=== PATIENT | female | born 1945 | race Caucasian/White ===

== ENCOUNTER 2017-05-12 09:38 | Day surgery (SDC) | payer MEDICARE, BC ==
[2017-05-07 12:41] VITALS: BMI 33.0
[2017-05-12] MEDS ORDERED: Propofol 200 MG/20 ML VIAL ONE (13:30)
--- NOTE | 2017-05-12 13:49 | OP ---
PREOPERATIVE DIAGNOSIS: History of colon polyps. PROCEDURE: After informed consent was obtained, the patient was placed in the left lateral decubitus position. Anesthesia administered per the Anesthesia Department. Forward-viewing endoscope was ins erted into the rectum after perianal inspection and rectal exam were normal and passed to the cecum a nd into the ileum with ease. The cecum, ileocecal valve, and appendiceal orifice were normal. The t erminal ileum was normal. The prep was excellent. The ascending, transverse, descending, sigmoid, a nd rectum were normal except for a few scattered sigmoid diverticula. Retroflexion in the rectum was normal. ASSESSMENT: 1. Sigmoid diverticulosis coli. 2. Otherwise, normal ileal colonoscopy. RECOMMENDATIONS: Repeat colonoscopy in 5 years.
== END 2017-05-12 13:30 | disposition home or self-care (01) ==
LOC: SDC 09:38
PROVIDERS: ATTEND Internal Medicine Gastroenterology
PROC: 0DJD8ZZ Inspection of Lower Intestinal Tract, Via Natural or Artificial Opening Endoscopic (ICD-10-PCS; principal; 2017-05-12)
DX: Z12.11 Encounter for screening for malignant neoplasm of colon (principal); K57.30 Diverticulosis of large intestine without perforation or abscess without bleeding; Z90.710 Acquired absence of both cervix and uterus; Z95.810 Presence of automatic (implantable) cardiac defibrillator; Z98.890 Other specified postprocedural states; Z86.010 Personal history of colon polyps
CPT/HCPCS: J2704

== ENCOUNTER 2018-02-27 12:24 | Outpatient (CLI) | payer MEDICARE, BC ==
[2018-02-27 14:06] LABS: #Eosinphils 0.2 thou/uL (0.0-0.7); #Lymphocytes 1.6 thou/uL (1.20-3.40); #Monocytes 0.6 thou/uL (0.11-0.59); #Neutrophils 3.8 thou/uL (1.40-6.50); %Basophils 0.6 % (0.0-1.0); %Eosinophils 3.4 % (0.0-10.0); %Lymphocytes 25.1 % (21.0-51.0); %Monocytes 9.8 % (0.0-10.0); %Neutrophils 61.1 % (42.0-75.0); Hemoglobin 12.9 g/dL (12.0-16.0); Mean Corpuscular HGB CONC 33.5 g/dL (32.0-36.0); Mean Corpuscular Hemoglobin 31.1 pg (27.0-31.0); Mean Corpuscular Volume 92.8 fL (78.0-98.0); Mean Platelet Volume 8.1 fL (7.4-10.4); Platelet Count 136 thou/uL (130-400); RBC Distribution Width 12.6 % (11.5-14.5); Red Blood Cell (RBC) Count 4.16 mill/uL (4.20-5.40); White Blood Cell (WBC) Count 6.3 thou/uL (4.8-10.8)
[2018-02-27 14:28] LABS: Anion Gap 14 mmol/L (10-20); BUN (Urea Nitrogen) 27 mg/dL (9.8-20.1); Calc. Creatinine Clearance 0 mL/min (70-130); Calcium 9.9 mg/dL (7.8-10.44); Carbon Dioxide 28 mmol/L (23-31); Chloride 102 mmol/L (98-107); Estimated GFR-MDRD 41; Glucose 100 mg/dL (83-110); Potassium 3.8 mmol/L (3.5-5.1); Sodium 140 mmol/L (136-145)
--- NOTE | 2018-02-27 14:56 | RAD ---
TWO VIEWS OF THE CHEST: COMPARISON: 09/06/09. HISTORY: Preoperative radiograph. FINDINGS: Two views of the chest show an enlarged but stable cardiomediastinal silhouette. The patient is stat us post sternotomy. The pacemaker is unchanged in position. There is no evidence of consolidation, mass, or pleural effusion. IMPRESSION: Cardiomegaly without evidence of acute cardiopulmonary disease. POS: [facility]
== END 2018-02-27 12:25 | disposition home or self-care (01) ==
LOC: LABBT 12:24
PROVIDERS: ATTEND Specialist
DX: Z01.818 Encounter for other preprocedural examination (principal); M79.9 Soft tissue disorder, unspecified; I51.7 Cardiomegaly
CPT/HCPCS: 71046; 80048; 85025; 93005; 93010

== ENCOUNTER 2018-03-03 06:56 | Day surgery (SDC) | payer MEDICARE, BC ==
[2018-02-27 12:54] VITALS: BMI 34.2
[2018-03-03] MEDS ORDERED: Ketorolac Tromethamine 30 MG/ML VIAL ONE (08:13)
[2018-03-03] MEDS ORDERED: CEFAZOLIN/Water 2 GM/20 ML SYRINGE ONE (08:14)
[2018-03-03] MEDS ORDERED: Bupivacaine/Epinephrine 0.25% 30 ML VIAL ONE (10:12)
[2018-03-03] MEDS ORDERED: Fentanyl 100 MCG/2 ML VIAL ONE ×2 (10:38→12:53)
[2018-03-03] MEDS ORDERED: Bacitracin Zinc Ointment 30 gm TUBE ONE (12:10)
[2018-03-03] MEDS ORDERED: Lidocaine 1% PF 5 ML VIAL ONE (13:50)
[2018-03-03] MEDS ORDERED: ePHEDrine/0.9% NaCl/PF SYRINGE 50 mg/10 ml ONE (13:50)
[2018-03-03] MEDS ORDERED: Ondansetron HCl/PF 4 MG/2 ML Vial ONE (13:50)
[2018-03-03] MEDS ORDERED: Dexamethasone 20 MG/5 ML VIAL ONE (13:50)
--- NOTE | 2018-03-04 09:26 | OP ---
DATE OF PROCEDURE: 03/03/2018 PREOPERATIVE DIAGNOSIS: A 15 cm upper back lipoma. POSTOPERATIVE DIAGNOSIS: A 15 cm upper back lipoma. OPERATION PERFORMED: Excision of 15 cm upper back lipoma with placement of subcutaneous drain. SURGEON: Jalen Horvath M.D. ANESTHESIA: General endotracheal. INDICATIONS: The patient is a 72-year-old female. I had previously removed a couple of different la rge lipomas in my office several years ago. The lipoma was removed previously were about 7 cm in max imum dimension. She returns at this time with a large obvious lipoma at the superior aspect of her b ack. This is significantly inferior to an incision from a prior lipoma on her posterior neck. She w as taken to the operating room at this time for excision of this lipoma. DESCRIPTION OF OPERATION: Informed consent was obtained. The patient was taken to the operating samantha m where general endotracheal anesthesia was obtained with the patient in supine position. A roll was placed under her chest to allow her neck to be able to bend forward. The area of the lipoma was pre pped with ChloraPrep and draped in sterile fashion. Local anesthetic was infiltrated circumferential ly using 0.25% Marcaine with epinephrine. A transverse incision was created over the lipoma. Carefu l dissection was carried out to dissect the lipoma free from the overlying skin. It was dissected im mediately off the underlying muscle. Great care was taken to ensure complete removal of the fatty ma ss. Meticulous hemostasis was obtained with electrocautery. The overlying skin was very redundant a fter the lipoma was removed. I therefore trimmed the edges of the skin both from the superior and in ferior flaps until it would allow appropriate closure. A #19 round fluted drain was placed within th e bed of the wound and brought out to the left lateral aspect, it was secured with a 3-0 nylon suture . The skin edges were approximated with 3-0 Vicryl to approximate the deep tissues and a running sut ure of 3-0 Prolene to approximate the skin edges. A dry gauze dressing was applied. There were no c omplications. The patient tolerated the procedure well and was taken to recovery room in stable cond ition.
== END 2018-03-03 14:52 | disposition home or self-care (01) ==
LOC: SDC 06:56
PROVIDERS: ATTEND Specialist
PROC: 0JB70ZZ Excision of Back Subcutaneous Tissue and Fascia, Open Approach (ICD-10-PCS; principal; 2018-03-03)
DX: D17.1 Benign lipomatous neoplasm of skin and subcutaneous tissue of trunk (principal); I25.10 Atherosclerotic heart disease of native coronary artery without angina pectoris; E78.00 Pure hypercholesterolemia, unspecified; I10 Essential (primary) hypertension; E11.42 Type 2 diabetes mellitus with diabetic polyneuropathy; F32.9 Major depressive disorder, single episode, unspecified; G43.909 Migraine, unspecified, not intractable, without status migrainosus; Z79.82 Long term (current) use of aspirin; Z79.84 Long term (current) use of oral hypoglycemic drugs; Z79.899 Other long term (current) drug therapy; Z88.8 Allergy status to other drugs, medicaments and biological substances; Z95.810 Presence of automatic (implantable) cardiac defibrillator
CPT/HCPCS: 88304; 96374; J0131; J1100; J1885; J2001; J2405; J3010

== ENCOUNTER 2018-03-20 10:57 | Outpatient (CLI) | payer MEDICARE, BC | END 2018-03-20 10:58 | disposition home or self-care (01) | LOC: BICMAMMO 10:57 | PROVIDERS: ATTEND Obstetrics & Gynecology | DX: Z12.31 Encounter for screening mammogram for malignant neoplasm of breast (principal) | CPT/HCPCS: 77063; 77067 ==

== ENCOUNTER 2019-03-24 11:19 | Outpatient (CLI) | payer MEDICARE, BC ==
--- NOTE | 2019-03-24 11:58 | MMO ---
Bilateral MAMMO Bilat Screen [facility]. CLINICAL HISTORY: Patient is 73 years old and is seen for screening. The patient has no family history of breast cancer. The patient has no personal history of cancer. VIEWS: The views performed were: bilateral craniocaudal with tomosynthesis; bilateral mediolateral oblique with tomosynthesis; and left mediolateral oblique. FILMS COMPARED: The present examination has been compared to prior imaging studies performed at [facility] on 11/30/2014, 12/04/2015, 01/08/2017 and 03/20/2018. This study has been interpreted with the assistance of computer-aided detection. MAMMOGRAM FINDINGS: There are scattered fibroglandular densities. There are stable benign appearing calcifications seen in both breasts. There are no suspicious masses, suspicious calcifications, or new areas of architectural distortion. IMPRESSION: THERE IS NO MAMMOGRAPHIC EVIDENCE OF MALIGNANCY. A ROUTINE FOLLOW-UP MAMMOGRAM IN 1 YEAR IS RECOMMENDED. THE RESULTS OF THIS EXAM WERE SENT TO THE PATIENT. ACR BI-RADS Category 2 - Benign finding MAMMOGRAPHY NOTE: 1. A negative mammogram report should not delay a biopsy if a dominant of clinically suspicious mass is present. 2. Approximately 10% to 15% of breast cancers are not detected by mammography. 3. Adenosis and dense breasts may obscure an underlying neoplasm. Reported by: DELFIN ATKINSON MD Electonically Signed: [id number]
== END 2019-03-24 11:20 | disposition home or self-care (01) ==
LOC: BICMAMMO 11:19
PROVIDERS: ATTEND Obstetrics & Gynecology
DX: Z12.31 Encounter for screening mammogram for malignant neoplasm of breast (principal)
CPT/HCPCS: 77063; 77067

== ENCOUNTER 2020-03-27 13:03 | Outpatient (CLI) | payer MEDICARE, BC ==
--- NOTE | 2020-03-27 13:57 | MMO ---
Bilateral MAMMO Bilat Screen [facility]. CLINICAL HISTORY: Patient is 74 years old and is seen for screening. The patient has no family history of breast cancer. The patient has no personal history of cancer. VIEWS: The views performed were: bilateral craniocaudal with tomosynthesis; bilateral mediolateral oblique with tomosynthesis; and left mediolateral oblique. FILMS COMPARED: The present examination has been compared to prior imaging studies performed at [facility] on 12/04/2015, 01/08/2017, 03/20/2018 and 03/24/2019. This study has been interpreted with the assistance of computer-aided detection. MAMMOGRAM FINDINGS: There are scattered fibroglandular densities. There are benign appearing calcifications seen in both breasts. There are no suspicious masses, suspicious calcifications, or new areas of architectural distortion. IMPRESSION: THERE IS NO MAMMOGRAPHIC EVIDENCE OF MALIGNANCY. A ROUTINE FOLLOW-UP MAMMOGRAM IN 1 YEAR IS RECOMMENDED. THE RESULTS OF THIS EXAM WERE SENT TO THE PATIENT. ACR BI-RADS Category 2 - Benign finding MAMMOGRAPHY NOTE: 1. A negative mammogram report should not delay a biopsy if a dominant of clinically suspicious mass is present. 2. Approximately 10% to 15% of breast cancers are not detected by mammography. 3. Adenosis and dense breasts may obscure an underlying neoplasm. Reported by: JUDIE MADRIGAL MD Electonically Signed: [id number]
== END 2020-03-27 13:04 | disposition home or self-care (01) ==
LOC: BICMAMMO 13:03
PROVIDERS: ATTEND Obstetrics & Gynecology
DX: Z12.31 Encounter for screening mammogram for malignant neoplasm of breast (principal)
CPT/HCPCS: 77063; 77067

== ENCOUNTER 2020-04-13 07:55 | Outpatient (CLI) | payer MEDICARE, BC ==
--- NOTE | 2020-04-13 11:04 | CT ---
CT Lower Ext Lt W Con History: Mass Comparison: None. Findings: No abnormal enhancing mass. There is a region of interest marker of the lateral thigh corre sponding to increased deposition of adipose material. Small intramuscular lipoma vastus intermedius muscle axial image 133 measures up to 1.4 cm. This does not correspond to the region images marker of the lateral thigh. Femoral vasculature is patent. Musculature is normal. No solid intrapelvic soft tissue evaluation is normal. Left femur is intact. No acute fracture. No periostitis or erosion. Small hypodensity inferior pole left kidney. Aortic contour is nonaneurysmal. Small fat-containing le ft indirect inguinal hernia. Impression: Corresponding to the region of interest marker lateral left thigh is increased deposition of adipose material.
[2020-04-13] MEDS ORDERED: Iopamidol-370 76% 500 ML 1 ML ONE (14:08)
== END 2020-04-13 07:56 | disposition home or self-care (01) ==
LOC: BICCT 07:55
PROVIDERS: ATTEND Specialist
DX: M79.89 Other specified soft tissue disorders (principal)
CPT/HCPCS: Q9967

== ENCOUNTER 2021-04-04 09:12 | Outpatient (CLI) | payer MEDICARE, BC | END 2021-04-04 09:13 | disposition home or self-care (01) | LOC: BICMAMMO 09:12 | PROVIDERS: ATTEND Obstetrics & Gynecology | DX: Z12.31 Encounter for screening mammogram for malignant neoplasm of breast (principal) | CPT/HCPCS: 77063; 77067 ==

== ENCOUNTER 2021-12-27 12:10 | Outpatient (CLI) | payer MEDICARE, BC | END 2021-12-27 12:11 | disposition home or self-care (01) | LOC: BICULT 12:10 | PROVIDERS: ATTEND Internal Medicine Nephrology | DX: N18.30 Chronic kidney disease, stage 3 unspecified (principal); N28.1 Cyst of kidney, acquired | CPT/HCPCS: 76770 ==

== ENCOUNTER 2022-05-16 08:55 | Outpatient (CLI) | payer MEDICARE, BC | END 2022-05-16 08:56 | disposition home or self-care (01) | LOC: BICMAMMO 08:55 | PROVIDERS: ATTEND Obstetrics & Gynecology | DX: Z12.31 Encounter for screening mammogram for malignant neoplasm of breast (principal) | CPT/HCPCS: 77063; 77067 ==

== ENCOUNTER 2022-06-25 14:46 | Outpatient (CLI) | payer MEDICARE, BC | END 2022-06-25 14:47 | disposition home or self-care (01) | LOC: BICMAMMO 14:46 | PROVIDERS: ATTEND Obstetrics & Gynecology | DX: Z13.820 Encounter for screening for osteoporosis (principal); N95.1 Menopausal and female climacteric states; M85.851 Other specified disorders of bone density and structure, right thigh; M85.852 Other specified disorders of bone density and structure, left thigh | CPT/HCPCS: 77080 ==

== ENCOUNTER 2022-09-09 05:52 | Day surgery (SDC) | payer MEDICARE, BC ==
[2022-09-06 10:37] VITALS: BMI 28.9
[2022-09-09] MEDS ORDERED: ePHEDrine Sulfate 50 MG/10 ML VIAL ONE (07:35)
[2022-09-09] MEDS ORDERED: PROPOFOL 200 MG/20 ML VIAL ONE (07:37)
== END 2022-09-09 09:21 | disposition home or self-care (01) ==
LOC: SDC 05:52
PROVIDERS: ATTEND Internal Medicine
PROC: 0DBK8ZX Excision of Ascending Colon, Via Natural or Artificial Opening Endoscopic, Diagnostic (ICD-10-PCS; principal; 2022-09-09)
PROC: 0DBL8ZX Excision of Transverse Colon, Via Natural or Artificial Opening Endoscopic, Diagnostic (ICD-10-PCS; 2022-09-09)
DX: Z12.11 Encounter for screening for malignant neoplasm of colon (principal); D12.2 Benign neoplasm of ascending colon; D12.3 Benign neoplasm of transverse colon; K57.30 Diverticulosis of large intestine without perforation or abscess without bleeding; K64.4 Residual hemorrhoidal skin tags; K64.8 Other hemorrhoids; I50.9 Heart failure, unspecified; E78.00 Pure hypercholesterolemia, unspecified; Z86.010 Personal history of colon polyps; Z95.810 Presence of automatic (implantable) cardiac defibrillator; Z95.2 Presence of prosthetic heart valve; Z79.82 Long term (current) use of aspirin; Z79.890 Hormone replacement therapy; Z79.899 Other long term (current) drug therapy
CPT/HCPCS: 88305; J2704

== ENCOUNTER 2023-01-09 08:01 | Outpatient (CLI) | payer MEDICARE, BC | END 2023-01-09 08:02 | disposition home or self-care (01) | LOC: BICCT 08:01 | PROVIDERS: ATTEND Family Medicine | DX: N39.41 Urge incontinence (principal); N28.9 Disorder of kidney and ureter, unspecified; K63.89 Other specified diseases of intestine; J98.4 Other disorders of lung; Z87.442 Personal history of urinary calculi | CPT/HCPCS: 74176; 82565 ==

== ENCOUNTER 2023-07-08 09:12 | Outpatient (CLI) | payer MEDICARE | END 2023-07-08 09:13 | disposition home or self-care (01) | LOC: BICULT 09:12 | PROVIDERS: ATTEND Family Medicine | DX: Q61.3 Polycystic kidney, unspecified (principal); R93.422 Abnormal radiologic findings on diagnostic imaging of left kidney | CPT/HCPCS: 76770 ==

== ENCOUNTER 2023-07-29 11:18 | Outpatient (CLI) | payer BC, MEDICARE | END 2023-07-29 11:19 | disposition home or self-care (01) | LOC: BICMAMMO 11:18 | PROVIDERS: ATTEND Obstetrics & Gynecology | DX: Z12.31 Encounter for screening mammogram for malignant neoplasm of breast (principal) | CPT/HCPCS: 77063; 77067 ==

== ENCOUNTER 2024-03-25 20:28 | Emergency (ER) | payer MEDICARE ==
[2024-03-25 21:53] LABS: Bacteria/HPF 4+ HPF (None Seen); Bilirubin Negative (Negative); Blood, Urine 3+ (Negative); CAUTI Indications for Culture Pelvic or flank pain; Clarity Extra Turbid (Clear); Glucose, Urine (Dipstick) Normal (Negative); Ketone, Urine Negative (Negative); Leukocyte 500 Leu/uL (Negative); Nitrite Negative (Negative); Protein, Urine (Dipstick) 300 mg/dL (Neg-Trace); RBC/HPF Greater than 50 HPF (0-3); Specific Gravity, Urine 1.011 (1.002-1.036); Squamous Epithelial 0-3 HPF (0-3); Urobilinogen Normal mg/dL (Less than 2); WBC/HPF Greater than 50 HPF (0-3)
[2024-03-25 22:01] LABS: Urine Culture Reflex Yes Yes
[2024-03-25 22:14] LABS: #Basophils 0.04 10x3/uL (0.0-0.2); #Eosinophils Less than 0.03 10x3/uL (0.0-0.7); %Basophils 0.3 % (0.0-1.0); %Eosinophils 0.1 % (0.0-10.0); %Monocytes 7.1 % (0.0-10.0); %Neutrophils 87.1 % (42.0-75.0); Hematocrit 36.5 % (36.0-47.0); Hemoglobin 11.7 g/dL (12.0-16.0); Mean Corpuscular HGB CONC 32.1 g/dL (32.0-36.0); Mean Corpuscular Hemoglobin 31.4 pg (27.0-31.0); Mean Corpuscular Volume 97.9 fL (78.0-98.0); Mean Platelet Volume 11.3 fL (7.4-10.4); Platelet Count 106 10x3/uL (130-400); RBC Distribution Width 14.4 % (11.5-14.5); Red Blood Cell (RBC) Count 3.73 mill/uL (4.20-5.40)
[2024-03-25 22:28] LABS: ALT (SGPT) 18 U/L (8-55); AST (SGOT) 17 U/L (5-34); Albumin 3.8 g/dL (3.4-4.8); Alkaline Phosphatase 62 U/L (40-110); Anion Gap 17 mmol/L (10-20); BUN (Urea Nitrogen) 44 mg/dL (9.8-20.1); Bilirubin, Total 1.3 mg/dL (0.2-1.2); Calc. Creatinine Clearance 0 mL/min (70-130); Carbon Dioxide 20 mmol/L (23-31); Chloride 105 mmol/L (98-107); Estimated GFR 23; Globulin 3.2 g/dL (2.4-3.5); Glucose 163 mg/dL (83-110); Lipase 26 U/L (8-78); Potassium 4.7 mmol/L (3.5-5.1); Sodium 137 mmol/L (136-145)
[2024-03-25] MEDS ORDERED: cefTRIAXone (ROCEPHIN) 1 GM VIAL ONE (23:44)
== END 2024-03-25 23:50 | disposition home or self-care (01) ==
LOC: ERS 20:28
DX: R10.9 Unspecified abdominal pain (principal); N30.00 Acute cystitis without hematuria; K63.89 Other specified diseases of intestine; R91.1 Solitary pulmonary nodule
CPT/HCPCS: 74176; 80053; 81001; 83690; 85025; 87077; 87086; 87186; 96361; 96374; 99284; J0696; 36415

== ENCOUNTER 2024-06-02 14:59 | Emergency (ER) | payer MEDICARE ==
[2024-06-02 15:38] LABS: #Basophils Less than 0.03 10x3/uL (0.0-0.2); %Basophils 0.3 % (0.0-1.0); %Eosinophils 1.7 % (0.0-10.0); %Lymphocytes 23.1 % (21.0-51.0); %Monocytes 5.6 % (0.0-10.0); Hematocrit 31.3 % (36.0-47.0); Hemoglobin 10.4 g/dL (12.0-16.0); Mean Corpuscular HGB CONC 33.2 g/dL (32.0-36.0); Mean Corpuscular Hemoglobin 31.6 pg (27.0-31.0); Mean Corpuscular Volume 95.1 fL (78.0-98.0); Mean Platelet Volume 11.4 fL (7.4-10.4); Platelet Count 127 10x3/uL (130-400); RBC Distribution Width 13.7 % (11.5-14.5); Red Blood Cell (RBC) Count 3.29 mill/uL (4.20-5.40)
[2024-06-02 16:02] LABS: ALT (SGPT) 18 U/L (8-55); AST (SGOT) 21 U/L (5-34); Albumin 3.6 g/dL (3.4-4.8); Alkaline Phosphatase 72 U/L (40-110); Anion Gap 14 mmol/L (10-20); BUN (Urea Nitrogen) 43 mg/dL (9.8-20.1); Calc. Creatinine Clearance 0 mL/min (70-130); Calcium 9.5 mg/dL (7.8-10.44); Carbon Dioxide 23 mmol/L (23-31); Chloride 108 mmol/L (98-107); Estimated GFR 29; Globulin 3.3 g/dL (2.4-3.5); Glucose 175 mg/dL (83-110); Potassium 3.9 mmol/L (3.5-5.1); Protein, Total 6.9 g/dL (5.8-8.1); Sodium 141 mmol/L (136-145)
[2024-06-02 16:05] LABS: Troponin I 0.021 ng/mL (< 0.028)
[2024-06-02 17:09] LABS: Bilirubin, Total 0.7 mg/dL (0.2-1.2)
[2024-06-02 17:34] LABS: Bilirubin Negative (Negative); Blood, Urine 3+ (Negative); CAUTI Indications for Culture Dysuria,urgency,freq; Clarity Turbid (Clear); Glucose, Urine (Dipstick) Normal (Negative); Ketone, Urine Negative (Negative); Leukocyte Negative Leu/uL (Negative); Nitrite Negative (Negative); Protein, Urine (Dipstick) 10 mg/dL (Neg-Trace); RBC/HPF Greater than 50 HPF (0-3); Specific Gravity, Urine 1.006 (1.002-1.036); Squamous Epithelial 0-3 HPF (0-3); Urobilinogen Normal mg/dL (Less than 2); WBC/HPF 0-3 HPF (0-3); pH, Urine 5.5 (5.0-9.0)
[2024-06-02 17:35] LABS: Bacteria/HPF Rare-Few HPF (None Seen); Urine Culture Reflex No No
== END 2024-06-02 18:09 | disposition home or self-care (01) ==
LOC: ERS 14:59
DX: R31.9 Hematuria, unspecified (principal); I42.9 Cardiomyopathy, unspecified; H40.9 Unspecified glaucoma; Z55.0 Illiteracy and low-level literacy; Z95.810 Presence of automatic (implantable) cardiac defibrillator
CPT/HCPCS: 36415; 74176; 80053; 81001; 84484; 85025

== ENCOUNTER 2024-06-04 13:40 | Outpatient (CLI) | payer MEDICARE | END 2024-06-04 13:41 | disposition home or self-care (01) | LOC: CT 13:40 | PROVIDERS: ATTEND Family Medicine | DX: R93.429 Abnormal radiologic findings on diagnostic imaging of unspecified kidney (principal); I51.7 Cardiomegaly; N28.1 Cyst of kidney, acquired | CPT/HCPCS: 74176 ==

== ENCOUNTER 2025-01-07 10:08 | Outpatient (CLI) | payer MEDICARE | END 2025-01-07 10:09 | disposition home or self-care (01) | LOC: RAD 10:08 | PROVIDERS: ATTEND Urology | DX: N28.1 Cyst of kidney, acquired (principal); J90 Pleural effusion, not elsewhere classified; J98.11 Atelectasis; I51.7 Cardiomegaly; M85.88 Other specified disorders of bone density and structure, other site; Z95.810 Presence of automatic (implantable) cardiac defibrillator | CPT/HCPCS: 71046 ==

== ENCOUNTER 2025-01-11 07:21 | Outpatient (CLI) | payer MEDICARE | END 2025-01-11 07:22 | disposition home or self-care (01) | LOC: MRI 07:21 | PROVIDERS: ATTEND Urology | DX: N28.1 Cyst of kidney, acquired (principal) | CPT/HCPCS: 74181; 76014 ==